=== PATIENT | male | born 1955 | race Caucasian/White ===

== ENCOUNTER 2024-07-06 05:26 | Observation (INO) ==
--- NOTE | 2024-04-13 09:19 | PAT Medication Instructions ---
Medication Instructions Date of Service April 13, 2024 Home Medications ibuprofen 600 mg tablet 600 mg PO BID olmesartan 40 mg tablet 40 mg PO HS pantoprazole 20 mg tablet,delayed release 20 mg PO HS ASK your surgeon for instructions ibuprofen 600 mg tablet 600 mg PO BID Take evening before surgery olmesartan 40 mg tablet 40 mg PO HS pantoprazole 20 mg tablet,delayed release 20 mg PO HS Other Notes NOTHING TO EAT OR DRINK AFTER MIDNIGHT. If you have any questions please call us at [phone] or [phone] or [phone] or [phone]
--- NOTE | 2024-04-22 10:49 | Anesthesiology Consultation ---
Date of Service April 22, 2024 Assessment & Plan (1) Encounter for pre-operative examination: - Infectious disease screening: Per assessment on 04/22/24- No known recent infectious disease contacts or current infectious disease symptoms. - Outpatient joint assessment: Pt currently scheduled for inpatient pathway. If surgeon requests review for outpatient joint pathway, patient is an acceptable candidate for outpatient joint program from anesthesia standpoint pending surgeon's office assessment that patient is motivated, has good/strong post-op home support and completes [facility] Day Joint Program preop requirements. - Patient acceptable risk for surgery pending surgeon-ordered PCP preop evaluation (Dr. Carin Mendieta; appt 05/04). Chart Review Chart Review: Patient seen in Pre Admission Testing Teaching & Discussion Pre-Anesthesia Teaching/Discussion Notes: Instructed NPO after midnight before surgery,except medications with 15 cc of water. Medication instructions provided according to the PAT guidelines. History Surgery Operation Date: 05/25/24 07:00 Proposed Procedures p Right Total Hip Arthroplasty - Reji Martin MD *Surgery date to be changed to 05/27/24 per patient* Height/Weight Height: 5 ft 8 in Weight: 73.2 kg Allergies Allergy/AdvReac Type Severity Reaction Status Date / Time No Known Allergies Allergy Verified 04/13/24 08:34 Medications Home Medications Medication Instructions Recorded Confirmed Last Taken ibuprofen 600 mg tablet 600 mg PO BID 04/13/24 04/13/24 Unknown olmesartan 40 mg tablet 40 mg PO HS 04/13/24 04/13/24 Unknown pantoprazole 20 mg tablet,delayed 20 mg PO HS 04/13/24 04/13/24 Unknown release Past Medical History Medical History Anxiety and depression R/t 's dementia per patient GERD (gastroesophageal reflux disease) Hypertension Osteoarthritis Exercise / Class Metabolic Activity III < 4 Walking/Shop/Light housework Past Family History Family History Other No family history of adverse response to anesthesia Past Surgical History Surgical History History of arthroscopy of left knee History of arthroscopy of right knee History of fusion of cervical spine History of tooth extraction History of total bilateral knee replacement (TKR) 2012 Post-op constipation History of wisdom tooth extraction Past Anesthesia History No Hx of Anesthesia Complications and No Family Hx of Anesthesia Complications History of PONV No Hx of PONV and Hx of Motion Sickness (Remote seasickness hx) Social History Smoking Status: Current every day smoker Smoking cigarettes per day: 15 cigars/day Do You Dip or Chew Tobacco: No Hx Alcohol Use: Yes ("3-4 beers a day") Alcohol type: beer alcohol intake frequency: 3 or more drinks per day (4-5 beers/night) Hx Substance Use: No substance use type: does not use Review of Systems Patient denies chest pain, shortness of breath, fever, chills, cough, wheezing, palpitations. Physical Exam Vital Signs BP 156/69 P 69 TEMP 97.7 SP02 96%RA RESP 16 Physical Full cervical extension range of motion. Full TMJ range of motion. TMD 3 finger breaths Mallampati Score II Dentition: missing molars Lungs: clear throughout to auscultation Cardiac: regular rate and rhythm, no murmurs noted Spine: normal Carotid arteries: negative bruit Extremities: no LE edema Lab Results Anesthesia Preop Results Results Anesthesia Widget: WBC 5.26 K/ul (4.8-10.8) 04/22/24 Hgb 13.1 g/dl (14.0-18.0) L 04/22/24 Hct 37.4 % (42.0-52.0) L 04/22/24 Plt 251 K/uL (130-400) 04/22/24 Na 135 mmol/L (136-145) L 04/22/24 K 4.2 mmol/L (3.5-5.1) 04/22/24 Cl 104 mmol/L (98-107) 04/22/24 CO2 26 mmol/L (21-32) 04/22/24 BUN 19 mg/dl (6-23) 04/22/24 Creat 0.77 mg/dl (0.6-1.4) 04/22/24 Glucose Level 98 mg/dl (70-99(Fasting)) 04/22/24 PT 10.3 Seconds (9.0-12.0) 04/22/24 PTT 25 Seconds (21-31) 04/22/24 INR 0.9 (0.9-1.1) 04/22/24 Urine Color Yellow 04/22/24 Urine Appearance Cloudy (Clear) A 04/22/24 Urine pH 5.5 (4.5-7.5) 04/22/24 Urine Specific [place] 1.021 (1.000-1.030) 04/22/24 Urine Protein Negative (Negative) 04/22/24 Urine Glucose (UA) Negative (Negative) 04/22/24 Urine Ketones Trace (Negative) H 04/22/24 Urine Blood Negative (Negative) 04/22/24 Urine Nitrite Negative (Negative) 04/22/24 Urine Bilirubin Negative (Negative) 04/22/24 Urine Urobilinogen Negative (Negative) 04/22/24 Urine Leukocyte Esterase Negative (Negative) 04/22/24 Urine WBC (Auto) 0-5 /hpf (0-5) 04/22/24 Urine RBC (Auto) 3-5 /hpf (0-2) H 04/22/24 Urine Hyaline Casts (Auto) 0-2 /lpf (0-2) 04/22/24 Urine Epithelial Cells (Auto) 0-2 /hpf (0-2) 04/22/24 Urine Bacteria (Auto) None Seen (None Seen) 04/22/24 Blood Type B Positive 04/22/24 Antibody Screen NEGATIVE 04/22/24 Testing Electrocardiogram Date: 04/22/24 NSR at 68bpm. RBBB. Chest X-Ray Date: 04/22/24 Findings: + NAD
--- NOTE | 2024-07-06 05:23 | History & Physical Bridge Note ---
Date of Service July 06, 2024 History & Physical Bridge Note I have examined the patient, reviewed the History & Physical and in the interval since the performance of the History & Physical I have noted the following changes of clinical significance:consent and site verified including risks such as infection,instability,bone and nerve injury and leg length inequality. no changes noted
[2024-07-06 06:03] LABS: Basophils # (auto) 0.03 K/uL (0.00-0.20); Basophils % (auto) 0.5 %; Eosinophils # (auto) 0.04 K/uL (0.00-0.50); Eosinophils % (auto) 0.7 %; Hematocrit (blood only) 37.6 % (42.0-52.0); Hemoglobin 12.8 g/dl (14.0-18.0); Immature Granulocytes # (auto) 0.02 K/uL (0.01-0.20); Immature Granulocytes % (auto) 0.3 %; Lymphocytes # (auto) 1.43 K/uL (1.20-3.40); Lymphocytes % (auto) 24.6 %; Mean Corpuscular Hemoglobin 32.7 pg (25.0-34.0); Mean Corpuscular Volume 96.2 fL (80.0-100.0); Mean Platelet Volume 8.4 fL (9.4-12.4); Monocytes # (auto) 0.57 K/uL (0.11-0.59); Monocytes % (auto) 9.8 %; Neutrophils # (auto) 3.72 K/uL (1.40-6.50); Neutrophils % (auto) 64.1 %; Platelet Count 267 K/uL (130-400); RDW Coefficient of Variation 12.2 % (11.5-14.5); RDW Standard Deviation 42.6 fL (36.4-46.3); Red Blood Count 3.91 M/uL (4.70-6.10); White Blood Count 5.81 K/ul (4.8-10.8)
[2024-07-06] MEDS: LR 60ML/HR IV SCH (06:12)
[2024-07-06] MEDS: LR 500ML BOLUS, THEN 15ML/HR IV SCH (06:12)
[2024-07-06] MEDS ORDERED: BUPIVACAINE 0.5 % 5 MG/1 ML PF 10ML VIAL ONE (06:34)
[2024-07-06] MEDS ORDERED: fentaNYL citrate PF 100 MCG/2 ML VIAL IV PRN (06:46)
[2024-07-06] MEDS ORDERED: ePHEDrine sulfate 50 MG/ML AMP IV PRN (06:46)
[2024-07-06] MEDS ORDERED: ONDANSETRON INJ 2 MG/ML 2 ML VIAL IV PRN ×2 (06:46→09:36)
[2024-07-06] MEDS ORDERED: ATROPINE SULFATE 0.1 MG/ML 10ML SYR IV PRN (06:46)
[2024-07-06] MEDS ORDERED: fentaNYL citrate PF 100 MCG/2 ML VIAL ONE (06:48)
[2024-07-06] MEDS ORDERED: MIDAZOLAM HCL 1 MG/ML 2ML VIAL ONE (06:48)
[2024-07-06] MEDS ORDERED: PROPOFOL IV EMULSION 10 MG/ML 20 ML VIAL IV ONE (06:49)
[2024-07-06] MEDS ORDERED: LIDOCAINE 2% 2 ML VIAL/AMP(20MG/ML) INFIL ONE (06:49)
[2024-07-06] MEDS: TRANEXAMIC ACID 1,000 MG **IV Pre-op IV SCH (06:51)
[2024-07-06] MEDS: ceFAZolin 2000MG 2,000 MG/15 ML SYR IV SCH ×2 (07:00→14:08)
[2024-07-06] MEDS ORDERED: PHENYLEPHRINE 100MCG/ML 5ML SYR ONE ×2 (07:16→07:49)
[2024-07-06] MEDS: ORTHO JOINT ANESTHETIC ONE (07:34)
[2024-07-06] MEDS ORDERED: DEXAMETHASONE SOD INJ 4 MG/ML VIAL ONE (07:47)
[2024-07-06] MEDS: TRANEXAMIC ACID 1,000 MG **IV Intra-op IV SCH (08:06)
[2024-07-06] MEDS: ROPIV 0.5% 246mg, Ketorolac 30mg, EPINEPHrine 0.5mg in NSS INFIL SCH (08:06)
--- NOTE | 2024-07-06 08:27 | Post Operative Brief Note ---
Immediate Post Op Note Date of Surgery July 06, 2024 Pre & Post Diagnosis Operation Date: 07/06/24 07:00 <No data on this case meets the specified criteria> Osteoarthritis right hip pre and postop diagnosis same I identified the patient and participated in the time-out.: Yes Procedure Operation Date: 07/06/24 07:00 <No data on this case meets the specified criteria> Noncemented right total hip replacement Surgeon Reji Martin MD [facility] no resident or fellow available Estimated Blood Loss 75 Findings Consistent with Post-Op Diagnosis Severe osteoarthritis right hip Fluids 1000 cc Complications None
--- NOTE | 2024-07-06 08:31 | Operative Report ---
Post Operative Report Pre & Post Diagnosis Operation Date: 07/06/24 07:00 <No data on this case meets the specified criteria> Osteoarthritis right hip pre and postop diagnosis I identified the patient and participated in the time-out.: Yes Procedure Operation Date: 07/06/24 07:00 <No data on this case meets the specified criteria> Noncemented right total placement Surgeon Reji Martin MD Hospitality Housekeeper Lyubov no resident or fellow available Estimated Blood Loss 75 Findings Consistent with Post-Op Diagnosis Severe osteoarthritis Fluids 1000 cc Specimens Bone pathology Drains None Complications None Indications Severe pain failed conservative management Description of Procedure After the patient was appropriate endophyte site verified consent verified antibiotics confirmed to be given the right lower extremity was prepped and draped use routine fashion the patient in the left lateral decubitus position. Posterior approach the hip was carried out. Full-thickness flaps raised IT band and gluteus dilma fascia incised and split the length of the incision tract placed care taken protect the sciatic nerve the short external rotators were rel eased the capsule was then teed and open and then the hip dislocated the femoral neck resected. Serial reaming carried up to 54 to 54 cup impacted into appropriate anteversion inclination secured with an additional 6.5 x 25 screw with excellent purchase. Osteophytes resected and the dual mobility liner placed. 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 He often times needs to pick her up off the floor. The femur was then flexed internally rotated proximal femur. With the lateralizing rongeur cutter canal finder lateralizing rasp was serial broaching up to a size 5. Size 5 was then impacted into position trial reduction was carried out and everything was excellent the hip was very stable. The hip was then dislocated all trial and once removed. Wound was soaked in Betadine and irrigated. Size 5 was then impacted in a 4728 bipolar was impacted with a 28+5 ceramic head. The hip was stable of leg lengths were excellent. Wound was then closed using #2 Vicryl for the capsule and the short external rotators and for the deep fascia 2-0 Vicryl for the subcutaneous tissue and stainless to clips for skin. EBL was 75 cc or less. Crystalloid 1000 cc. Bone pathology pending x-ray pending. Summary of implants size 54 acetabular shell sector cup 6.5 x 25 screw dome cover 54 x 47 liner 5 standard femoral stem 47/25 bipolar head 28+5 ceramic head. DePuy J&J implants. EBL 75 cc or less crystalloid 1000 cc. Bone pathology pending. DVT prophylaxis start tomorrow. Family contacted son postop Barrington [phone] I attest to the content of the Intraoperative Record and any orders documented therein. Any exceptions are noted below.
--- NOTE | 2024-07-06 08:32 | Orthopedic Progress Note ---
Date of Service July 06, 2024 Orthopedic Progress Note Underwent right total hip replacement noncemented. Tolerated well. Denies chest pain shortness of breath fever chills nausea vomiting headache. X-ray pending. Neurovascular check limited by spinal. Family contacted son Barrington [phone].
--- NOTE | 2024-07-06 08:33 | Discharge Summary ---
Date of Service July 07, 2024 Admission HPI Per Admitting Provider Right hip pain osteoarthritis right hip Principal Diagnosis Osteoarthritis right hip Discharge Data Allergies Allergy/AdvReac Type Severity Reaction Status Date / Time perflutren [From Definity] AdvReac Unknown Back Pain Verified 07/06/24 05:49 Vaccinations None Consultations None Procedures Performed Operation Date: 07/06/24 07:00 <No data on this case meets the specified criteria> Noncemented right total hip replacement Ordered Studies Bone pathology x-ray Hospital Course (1) Status post right hip replacement: Total Time Total Time Spent Total Time Spent (In Minutes): 5 Discharge Plan Discharge Items Patient Disposition: Home - Home Health Services Reason For Visit: Right Hip Osteoarthritis Discharge Diagnosis: Osteoarthritis right hip status post right hip replacement noncemented Condition on Discharge: Good Activity: Per Instructions section Lifting: Wait until after follow-up appointment Bathing: Keep incision dry Sexual Activity: Wait until after follow-up appointment Exercise/Sports: Wait until after follow-up appointment Weightbearing: Full weightbearing Non-emergency contact: Surgeon Call non-emergency contact if: you have any medication questions, your pain is not controlled, your temperature is above 101, your wound has increased redness, your wound has increased drainage and your wound pain has increased Follow-up/Referrals: Marc Stack, [Primary Care Provider] - Diet: Regular Addtl Attending Provider Instructions: New Medicine: * You will likely be taking one or more of these medicines: 1. Percocet - Take, as directed, when you need it, every four to six hours to control your pain. 2. Iron Sulfate - Take 1x each day for the month after surgery to help you replace the blood lost during surgery. 3. Eliquis - Thins your blood to lessen the chance of forming a blood clot. * The most common side effects of pain medicine and iron are nausea and constipation. If nausea or constipation is too much of a problem or if you have any questions about your new medicines or doses, call [facility] at . We will try to help you manage these issues. "VERY IMPORTANT TO READ AND REVIEW" Blood Clots and Blood Thinning Medicine: * You are given Eliquis during the immediate post-operative period to lessen the risk of blood clots forming in your legs and/or lungs. It is usually given for six weeks after surgery. Pain: * The immediate post-operative period after hip replacement surgery is often quite painful. * You are given a prescription for pain medicine. You should take it, as directed, when you need it, especially before physical therapy and before going to bed. Pain that interferes with sleep is very common and can last several months. * You will likely need pain medicine for the first two to four weeks. It will not stop all of the pain. The pain will lessen and as you feel better, you may change to milder pain medicine such as Tylenol. * The most common side effects of pain medicine are nausea and constipation, so don't take more than you need. Physical Therapy: * Follow the "Hip Precautions Instructions." * In some cases, the social work assistant at the hospital will arrange to have a therapist come to your house for the first couple of weeks to help you learn these skills. * You need to practice on your own or with the help of a family member as needed. * When you learn these skills, most of the therapy can be done on your own. Home Exercise: * You were shown a series of exercises in the hospital. Do these exercises three to four times each day including the exercises you were shown in physical therapy. Walking: * Get up and walk several times each day. For the first four weeks, try not to stand or walk for more than one hour at a time. If you do stand or walk for more than one hour, you will not hurt anything, but your leg will likely swell. * As you feel comfortable, you may change from the walker or crutches to a cane and then to independent walking. SELF CARE INSTRUCTIONS AFTER TOTAL HIP REPLACEMENT Until the incision and soft tissues around your hip have healed, there is a possibility that the hip prosthesis could dislocate. A. Observe the following precautions to prevent dislocation: 1. Don't bend your hip greater than 90 degrees. 2. Avoid crossing your legs or ankles while standing or lying. 3. Sit with your feet placed 6 inches apart. 4. When sitting, keep your knees below your hips. Sit on a firm surface, avoid deep, soft chairs and couches. Use an elevated toilet seat in the bathroom. 5. Don't bend over at the waist. Use a long handled shoehorn and a sock aid to help you put on your shoes and socks. A plate maker zinc can help you orange picker machine operator objects that are too high or too low to reach. 6. Keep car riding to a minimum for at least one month after surgery. B. Your balance may be shaky for a while. Use crutches or a walker until directed by your doctor. C. Use hand rails when walking on stairs. D. Wear low heeled shoes with non-slip soles. E. Be sure that your floors are free of things that could trip you - throw rugs, electrical cords, small objects. Avoid wet and waxed floors, especially with crutches and canes. F. Try to walk several times a day with rest periods between. G. Continue with all the exercises taught to you in the hospital. Again, make walking a part of your daily routine. VERY IMPORTANT TO READ AND REVIEW A. Take Eliquis (blood thinning medication) as directed by your doctor. B. There are a few signs you need to watch for after you are home. If you notice any of the followin. Increased severe hip pain. Some pain is expected especially when you exercise. 2. Increased swelling in your leg or knee; pain or swelling of the calf muscle in either lower leg. 3. Any fluid drainage from the incision. 4. Shortness of breath or chest pain. TEDs/Elastic Stockings: * The white elastic stockings help limit swelling and prevent blood clots from forming in your legs. The more you wear them, the more they work. * Wear them for six weeks. Prevention of Infection: * Take antibiotics one hour before any dental cleaning, dental work, urological procedure, gastrointestinal procedure or any invasive surgery in order to prevent your new joint from getting infected. * You may get the antibiotics from the doctor performing the procedure or we will call in a prescription to the pharmacy of your choice. Call the office for a prescription at least 2 days prior to your appointment. Diet: * You may return to previous diet. Things to Watch For: * Drainage from the incision site that occurs more than one week after your surgery. * Severely increased leg pain or swelling. * Increased redness at the incision site. * Fever above 101 degrees Fahrenheit. * Unusual chest pain or shortness of breath. * Unusual pain or burning with urination MEDICATIONS: * Please take your prescriptions as instructed at your pre-op appointment and/or see medication discharge instructions listed above. * If concerns develop, call your physician's office at . SPECIAL CARE INSTRUCTIONS: * Ice/Elevate as instructed. * Keep dressing clean, dry, intact. * Your surgical extremity may be discolored due to prepping agents used on the skin. A bluish-green tint is a normal variant and should not cause alarm. Call your doctor at [phone] if: * Temperature above 101 degrees * Pain not relieved by pain medicine ordered * There is increased drainage or redness from any incision * You have any unanswered questions, problems or concerns. FOLLOW UP VISIT: * If not already scheduled, please call the office at to schedule a follow-up appointment. Pending Studies at Discharge: Yes Studies:: bone pathology Stand-Alone Forms: My [facility], Smoking Cessation Medications and DC Order Prescriptions: No Action pantoprazole 20 mg Tablet,Delayed Release (Dr/Ec) 20 mg PO UD PRN (Reason: Acid Reflux) ibuprofen 600 mg Tablet 600 mg PO BID olmesartan 40 mg Tablet 40 mg PO HS aspirin [Aspir-81] 81 mg Tablet,Delayed Release (Dr/Ec) 81 mg PO DAILY Patient Comments: do not take every day Admission Data Admit Date/Time: 07/06/24 08:41 Attending Provider: Reji Martin Admit Provider: Reji Martin Primary Care Provider: Marc Stack Other Providers: [facility]; [facility]
--- NOTE | 2024-07-06 08:44 | Operative Report ---
Post Operative Report Pre & Post Diagnosis Operation Date: 07/06/24 07:00 Pre-Op Diagnosis: Right Hip Osteoarthritis Post-Op Diagnosis: Right Hip Osteoarthritis I identified the patient and participated in the time-out.: Yes Procedure Operation Date: 07/06/24 07:00 Actual Procedures p Right Total Hip Arthroplasty, Uncemented(Right) - Reji Martin MD Surgeon DAJUAN Martin MD Drag Saw[facility] PAC no resident or fellow available Estimated Blood Loss 75 Findings Consistent with Post-Op Diagnosis see operative report Specimens see operative report Drains none Complications none Disposition Accompanied Patient To Recovery: Yes Indications This 68 year old male presented to the office with complaints of persisting right hip pain. He had tried conservative care measures without improvement. He elected to proceed with surgical invention after being educated about potential risks and outcomes. Preoperative imaging was obtained. Description of Procedure The patient was administered a spinal anesthetic and then taken to the operating room where he was given sedation. He was prepped and draped in the usual sterile fashion. Please see Dr. Martin's operative report for specifics of the procedure. I was present for the entire case from initial patient positioning through final wound closure. Assistance was provided in tissue retraction, hemostasis, trial implant placement, final implant placement, and final wound closure. The patient was taken to the recovery room in satisfactory condition. I attest to the content of the Intraoperative Record and any orders documented therein. Any exceptions are noted below.
--- NOTE | 2024-07-06 08:48 | XRay Report ---
XR pelvis 1-2V routine CLINICAL HISTORY: S/P R KAREN COMPARISON: 01/18/2024 FINDINGS: Interval right hip prosthesis shows no hardware complication. There is expected soft tissu e gas. Skin amrit are present. IMPRESSION: Unremarkable postoperative exam. ACT 112: Negative or not required by law. Electronically signed by: Adolfo Thompson M.D. 07/06/2024 8:46 AM
[2024-07-06] MEDS ORDERED: VANCOMYCIN CONSULT ACTIVE PRN (09:36)
[2024-07-06] MEDS ORDERED: HYDROmorphone INJ 0.5 MG/0.5 ML SYR IV PRN (09:36)
[2024-07-06] MEDS ORDERED: bisacodyL 10 MG SUPP PR PRN (09:36)
[2024-07-06] MEDS ORDERED: ALUMINUM/MAGNESIUM SUSP 30 ML UDC PO PRN (09:36)
[2024-07-06] MEDS ORDERED: METOCLOPRAMIDE HCL INJ 5 MG/ML 2 ML VIAL IV PRN (09:36)
[2024-07-06] MEDS ORDERED: MAGNESIUM HYDROXIDE SUSP 30 ML UDC PO PRN (09:36)
[2024-07-06] MEDS ORDERED: NALOXONE HCL 0.4 MG/1 ML VIAL/CARP IV PRN (09:36)
[2024-07-06] MEDS ORDERED: diphenhydrAMINE 50 MG/ML VIAL IV PRN (09:36)
[2024-07-06] MEDS: APIXABAN 2.5 MG TAB PO SCH (10:52)
[2024-07-06] MEDS: SODIUM CHLORIDE 0.9% 1,000 ML IV SCH (10:58)
[2024-07-06] MEDS: VANCOMYCIN HCL 1,000 MG in SODIUM CHLORIDE 0.9% 250 ML IV ONE (10:59)
[2024-07-06] MEDS ORDERED: TAMSULOSIN HCL 0.4 MG CAP PO PRN (11:21)
[2024-07-06] MEDS: KETOROLAC TROMETHAMINE 15 MG/ML VIAL IV SCH (11:29)
[2024-07-06] MEDS: DOCUSATE SODIUM 100 MG CAP PO SCH (11:29)
[2024-07-06] MEDS: MULTIVITAMIN TAB PO SCH (12:22)
[2024-07-06] MEDS: ASPIRIN 81 MG ECTAB PO SCH (12:22)
--- NOTE | 2024-07-06 14:07 | Orthopedic Progress Note ---
Date of Service July 06, 2024 Assessment & Plan Admission and Anticipated Discharge Date Admission Date: July 06, 2024 Orthopedic Progress Note Postop check status post right total hip replacement. Patient is resting comfortably in bed. Denies chest pain shortness of breath fever chills nausea vomiting headache. Vital signs are stable he is afebrile. Neurovascular check from sciatic nerve is normalized. Wound dressing clean dry and intact. Postop x-rays look excellent. Assessment doing well continue care pathway mobilize out of bed. Start walking sitting in a chair etc. Will saline lock IV. Initiate anticoagulation tomorrow.
[2024-07-06] MEDS: ACETAMINOPHEN 500 MG TAB PO SCH (14:08)
--- NOTE | 2024-07-06 15:15 | Anesthesiology Progress Note ---
Date of Service July 06, 2024 Anesthesia Post Procedure Vital Signs Vital Signs: Temp Pulse Pulse Pulse Resp BP Pulse Ox 07/06/24 13:30 36.7 C 73 14 146/73 H 94 07/06/24 12:33 36.7 C 79 17 148/82 H 95 07/06/24 11:40 36.8 C 63 16 168/82 H 96 07/06/24 10:55 36.9 C 65 17 168/76 H 94 07/06/24 10:25 36.6 C 66 14 172/76 H 96 07/06/24 10:10 63 15 170/81 H 95 07/06/24 10:00 64 15 165/86 H 97 07/06/24 09:50 63 21 166/86 H 97 07/06/24 09:40 36.6 C 57 L 14 176/82 H 100 07/06/24 09:30 65 16 167/92 H 97 07/06/24 09:20 59 L 14 174/91 H 98 07/06/24 09:10 59 L 16 149/93 H 92 07/06/24 09:00 60 16 160/74 H 100 07/06/24 08:50 57 L 15 161/89 H 100 07/06/24 08:40 60 18 156/84 H 97 07/06/24 08:31 36.1 C L 63 17 134/68 100 07/06/24 05:52 36.4 C L 67 20 188/83 H 99 O2 Del Method O2 Flow Rate 07/06/24 13:30 Room Air 07/06/24 12:33 Room Air 07/06/24 11:40 Room Air 07/06/24 10:55 Room Air 07/06/24 10:25 Room Air 07/06/24 10:10 Room Air 07/06/24 10:00 Room Air 07/06/24 09:50 Room Air 07/06/24 09:40 Room Air 07/06/24 09:30 Room Air 07/06/24 09:20 Room Air 07/06/24 09:10 Room Air 07/06/24 09:00 Room Air 07/06/24 08:50 Oxymask 4 07/06/24 08:40 Oxymask 4 07/06/24 08:31 Oxymask 4 07/06/24 05:52 Room Air Notes Mental Status: alert / awake / arousable Patient Amnestic to Procedure: Yes Nausea / Vomiting: adequately controlled Pain: adequately controlled Airway Patency, RR, SpO2: stable & adequate BP & HR: stable & adequate Hydration State: stable & adequate Neuraxial Anesthesia: was administered and sensory block is resolving Anesthetic Complications: no major complications apparent
--- OUTSIDE RECORDS SUMMARY | 2024-07-06 15:34 | External Medical Summary | Continuity of Care Document ---
Author Name Unknown Organization [facility] [address] Address [address] [place], [place] [id number] Care Team Providers Care Clinical Support Tech Name Role Phone Marc Stack Primary Care Physician [phone] [id number] Date(s): 06/23/24 - 06/23/24 [facility] [address] [facility] [address] [place], [place] [phone] Encounter Diagnosis Encounter for other preprocedural examination(Final) - Discharge Disposition: Home or Self Care Attending Physician: ALAINA Mcarthur Cory D Referring Physician: ALAINA Mcarthur Cory D Encounter Type: Clinic Allergies, Adverse Reactions, Alerts Substance Criticality Severity Reaction Reaction Severity Status Definity sharp back pain Acti ve Immunizations Given and Recorded Vaccine Date Status Refusal Reason SARS-CoV-2 (COVID-19) mRNA-vacc - [id number] 12/04/23 Recorded SARS-CoV-2 (COVID-19) mRNA-vacc - [id number] 01/14/23 Recorded SARS-CoV-2 mRNA (Pfizer 12+) bivalent 11/13/21 Rec orded Zoster Vaccine Unspecified 1 10/07/21 Recorded pneumococcal 13-valent vaccine 2 10/07/21 Recorded tetanus/diphtheria/pertuss, acel (Tdap) 10/07/21 R ecorded SARS-CoV-2 (COVID-19) mRNA BNT-162b2 vax 12/06/20 Recorded SARS-CoV-2 (COVID-19) mRNA BNT-162b2 vax 05/16/20 Recorded influenza virus vaccine, inactivated 12/07/19 Give n influenza virus vaccine, inactivated 11/15/18 Give n pneumococcal 23-valent vaccine 08/13/18 Given 1Result Comment: Nadja 2Result Comment: Nadja Medications aspirin 81 mg oral delayed release tablet Start: 05/24/24 9:17:00 AM EDT, 1 tab, PO, Daily, Disp# 100 tab, Note to Pharmacy: Patient to take daily with food, Pharmacy: [id number] Start Date: 05/24/24 Status: Ordered Quantity: 100.0 Unit: tab Repeat number: 1 ibuprofen 600 mg oral tablet Start: 03/24/24 1:30:00 PM EST, See Instructions, Disp# 60 tab, Refills: 2, TAKE 1 TABLET BY MOUTH TWO TIMES DAILY WITH FOOD OR MILK NEEDED FOR PAIN AND OR ARTHRITIS, [id number] Start Date: 03/24/24 Status: Ordered Quantity: 60.0 Unit: tab Repeat number: 1 multivitamin Start: 11/15/18 8:46:00 AM EDT, 1 tab, PO, Daily, Chewable Start Date: 11/15/18 Status: Ordered Repeat number: 1 olmesartan 40 mg oral tablet Start: 02/12/24 9:32:00 AM EST, 1 tab, PO, Daily, Disp# 30 tab, Refills: 6, Pharmacy: [id number] Start Date: 02/12/24 Stop Date: 09/09/24 Status: Ordered Quantity: 30.0 Unit: tab Repeat number: 7 pantoprazole 20 mg oral delayed release tablet Start: 03/10/24 11:45:00 AM EST, 1 tab, PO, Daily, Disp# 90 tab, Refills: 3, Pharmacy: [id number] Start Date: 03/10/24 Stop Date: 07/08/24 Status: Ordered Quantity: 90.0 Unit: tab Repeat number: 4 Indications: Epigastric pain; Problem List Condition Confirmation Course Effective Dates Status H ealth Status Informant Acute rhinosinusitis Confirmed Active Alcohol abuse Confirmed Active Cigar smoker Confirmed Active Decreased vision Confirmed Active Depressed mood Confirmed Active S/P TKR (total knee replacement) Confirmed Active History of neck surgery Confirmed Active Hypertension Confirmed Active Knee pain 1 Confirmed Active Low back pain radiating to right lower extremity Confirmed Active Neck pain Confirmed Active Nicotine use Confirmed Active Osteoarthritis of knee Confirmed Active Osteoarthritis of right hip Confirmed Active Healthcare maintenance Confirmed Active Preoperative cardiovascular examination Confirmed Active Positive screening for depression on 9-item Patient Health Questionnaire (PHQ-9) Confirmed Active Right bundle branch block Confirmed Active Rotator cuff tear Confirmed Active Sacroiliac joint pain Confirmed Active SHOULDER PAIN 2 Confirmed Active History of cigarette smoking Confirmed Active Weight disorder Confirmed Active 1left 2right Procedures Procedure Date Related Diagnosis Body Site Status Hip X-ray 1 06/14/20 Completed Ultrasound of right groin an d right scrotum 2 06/14/20 Completed CXR - Chest X-ray 3 06/19/14 Compl eted Neck repair 4 04/2011 Completed bilateral knee arthroscopies Completed bilateral TKAs Completed [facility] ompleted 11. No acute fractures. 2. Moderate osteoarthritic changes involving the right hip, with marked superior joint space narrowing and femoral head osteophyte formation. 2No sonographic abnormality within the right inguinal region. No hernia identified. 3No evidence of acute disease 4Donner disc and screws placed. Results Laboratory List Name Date Basic Metabolic Panel (BASIC METAB PANEL ) 06/23/24 Complete Blood Count w Differential (CBC ,DIFFH) 06/23/24 Prothrombin Time w/ INR (PROTIME WITH IN R) 06/23/24 Urine Analysis w/ Reflexed Microscopic. (URINE W/REFLEX MICR) 06/23/24 Most recent to oldest [Reference Range]: 1 eGFR CKD-EPI [>60 mL/min/1.73 m2] >90 mL /min/1.73 m2 1 (06/23/24 10:04 AM) Estimated CrCl 83.19 mL/min (06/23/24 10:04 AM) MPV [9.0-12.2 fL] 8.6 fL *LOW* (06/23/24 10:04 AM) Immature Gran% 0.4 % (06/23/24 10:04 AM) Neut% 62.4 % (06/23/24 10:04 AM) Lymph% 27.2 % (06/23/24 10:04 AM) [place]% 9.1 % (06/23/24 10:04 AM) Baso% 0.4 % (06/23/24 10:04 AM) Eos% 0.5 % (06/23/24 10:04 AM) Immat Gran, Abs [0-0.4 K/uL] 0.02 K/uL (06/23/24 10:04 AM) Neut, Abs [2.0-7.7 K/uL] 3.48 K/uL (06/23/24 10:04 AM) Lymph, Abs [1.0-3.4 K/uL] 1.52 K/uL (06/23/24 10:04 AM) [place], Abs [0-1.0 K/uL] 0.51 K/uL (06/23/24 10:04 AM) Baso, Abs [0-0.1 K/uL] 0.02 K/uL (06/23/24 10:04 AM) Eos, Abs [0-0.5 K/uL] 0.03 K/uL (06/23/24 10:04 AM) Type of Diff: AUTO *Unknown* (06/23/24 10:04 AM) RDW [11.5-14.2 %] 12.2 % (06/23/24 10:04 AM) Anion Gap [5-14 mmol/L] 6 mmol/L (06/23/24 10:04 AM) Bili (u) [NEG] NEGATIVE *Unknown* (06/23/24 10:04 AM) BUN [7-20 mg/dL] 21 mg/dL *HI* (06/23/24 10:04 AM) Ca [8.4-10.2 mg/dL] 9.1 mg/dL (06/23/24 10:04 AM) Cl- [96-107 mmol/L] 105 mmol/L (06/23/24 10:04 AM) HCO3 [22-30 mmol/L] 24 mmol/L (06/23/24 10:04 AM) Cret [0.70-1.30 mg/dL] 0.76 mg/dL (06/23/24 10:04 AM) Glu [74-106 mg/dL] 106 mg/dL (06/23/24 10:04 AM) Hct [39-48 %] 40.7 % (06/23/24 10:04 AM) Hgb [13.0-17.0 g/dL] 13.7 g/dL (06/23/24 10:04 AM) INR [0.9-1.1] 0.9 2 (06/23/24 10:04 AM) K [3.5-5.1 mmol/L] 4.2 mmol/L (06/23/24 10:04 AM) Ketones [NEG mg/dL] NEGATIVE mg/dL (06/23/24 10:04 AM) Leuk Est [NEG] NEGATIVE 3 *Unknown* (06/23/24 10:04 AM) MCH [28-33 pg] 32.9 pg (06/23/24 10:04 AM) MCHC [32-36 g/dL] 33.7 g/dL (06/23/24 10:04 AM) MCV [81-96 fL] 97.8 fL *HI* (06/23/24 10: AM) Na [137-145 mmol/L] 135 mmol/L *LOW* (06/23/24:04 AM) Nitrite (u) [NEG] NEGATIVE *Unknown* (06/23/24 10:04 AM) Plts [150-350 K/uL] 327 K/uL (06/23/24 10:04 AM) PT [12.0-14.2 seconds] 12.5 seconds (06/23/24 10:04 AM) RBC [4.40-5.60 M/uL] 4.16 M/uL *LOW* (06/23/24 10:04 AM) Appear (u) CLEAR *Unknown* (06/23/24 10:04 AM) Color (u) YELLOW *Unknown* (06/23/24 10:04 AM) Glu (u) [NEG mg/dL] NEGATIVE mg/dL (06/23/24 10:04 AM) Hgb (u) [NEG] NEGATIVE *Unknown* (06/23/24 10:04 AM) pH (u) [4.5-8.0 unit] 6.0 unit (06/23/24 10:04 AM) Prot (u) [NEG mg/dL] NEGATIVE mg/dL (06/23/24 10:04 AM) Urobili [0.1-1.0 EU/dL] 0.2 EU/dL (06/23/24 10:04 AM) SG [1.005-1.030] 1.025 (06/23/24 10:04 AM) WBC [4.0-10.4 K/uL] 5.58 K/uL (06/23/24 10:04 AM) 1Result Comment: Testing Performed By: Dept of Pathology [facility] [address], [address], [place] [address] 2Result Comment: Suggested therapeutic range for low-intensity Coumadin therapy for venous thromboembolism is INR 2.0-3.0 (ex: atrial fibrillation, history of TIA/stroke). For high risk patients, the suggested therapeutic range is INR 2.5-3.5 (ex: mechanical prosthetic valves). Testing Performed By: Dept of Pathology [facility] [address], [address], [place] [address] 3Result Comment: Testing Performed By: Dept of Pathology [facility], [address], [place] [address] Social History Social History Type Response Tobacco Current every day sm oker, Cigars, Started age 14 Years. 1 Smoking Status Never smoked cigaret juan pablo Sex Male Sex Representation Male (finding) 1Former Cigarette smoker. Now smokes cigars Patient Care team information Care Team Personnel Name: DO Stack Franklin J Position: Physician - Family Med Member Role: Primary Care Provider Address: [address] [place] [address] Telecom: [phone] Care Team Related Persons Name: NOEMÍ GASCA Insurance Providers Guarantor name: AUBREE GASCA Health Plan Information #: 1 [address] [employer] [place] Member Number: [id number] Policy Number: NA Group Number: [id number] Payer Identifier: [id number] Health Plan Information #: [address] [facility] [place] Member Number: [id number] Policy Number: NA Group Number: NA Payer Identifier: [id number] Health Plan Information #: 3 Payer: MEDICARE Member Number: NA Policy Number: NA Group Number: NA Payer Identifier: [id number]
--- OUTSIDE RECORDS SUMMARY | 2024-07-06 15:34 | External Medical Summary | Continuity of Care Document ---
Author Name Unknown Organization [facility] [address] [place] [id number] Address [address] [place] [id number] Care Team Providers Care Security Rep Name Role Phone Marc Stack Primary Care Physician [phone] [id number] Date(s): 06/17/24 - 06/17/24 [facility] [address] [facility] [address] [facility] [address] [place] [id number] Encounter Diagnosis Osteoarthritis of right hip(Discharge Diagnosis) - 06/17/24 Discharge Disposition: Home or Self Care Attending Physician: ALAINA Mcarthur, Natanael Brown Referring Physician: MD Mario, Reji Ball Encounter Type: Clinic Allergies, Adverse Reactions, Alerts Substance Criticality Severity Reaction Reaction Severity Status Definity sharp back pain Acti ve Immunizations Given and Recorded Vaccine Date Status Refusal Reason SARS-CoV-2 (COVID-19) mRNA-vacc - [id number] 12/04/23 Recorded SARS-CoV-2 (COVID-19) mRNA-vacc - [id number] 01/14/23 Recorded SARS-CoV-2 mRNA (Pfizer 12+) bivalent [...] Patient to take daily with food, Pharmacy: [facility][id number] Start Date: 05/24/24 Status: Ordered Quantity: 100.0 Unit: tab Repeat number: 1 ibuprofen 600 mg oral tablet Start: 03/24/24 1:30:00 PM EST, See Instructions, Disp# 60 tab, Refills: 2, TAKE 1 TABLET BY MOUTH TWO TIMES DAILY WITH FOOD OR MILK NEEDED FOR PAIN AND OR ARTHRITIS, [id number] Start Date: 03/24/24 Status: Ordered Quantity: 60.0 Unit: tab Repeat number: 1 multivitamin Start: 11/15/18 8:46:00 AM EDT, 1 tab, PO, Daily, Chewable Start Date: 11/15/18 Status: Ordered Repeat number: 1 olmesartan 40 mg oral tablet Start: 02/12/24 9:32:00 AM EST, 1 tab, PO, Daily, Disp# 30 tab, Refills: 6, Pharmacy: [facility] Start Date: 02/12/24 Stop Date: 09/09/24 Status: Ordered Quantity: 30.0 Unit: tab Repeat number: 7 pantoprazole 20 mg oral delayed release tablet Start: 03/10/24 11:45:00 AM EST, 1 tab, PO, Daily, Disp# 90 tab, Refills: 3, Pharmacy: [id number] Start Date: 03/10/24 Stop Date: 07/08/24 Status: Ordered Quantity: 90.0 Unit: tab Repeat number: 4 Indications: Epigastric pain; Mental Status 06/17/24 Barriers to Learning one year None evide nt Mandatory Health Literacy Documentation Yes Health Literacy Communication Barriers N ever Primary Language Congolese Problem List Condition Confirmation Course Effective Dates [...] Active Weight disorder Confirmed Active 1left 2right Diagnosis Diagnosis Type Effective Dates Health Status Clinical Service Informant Osteoarthritis of right hip Discharge Diagnosis 06/17/24 Procedures Procedure Date Related Diagnosis Body Site Status Hip X-ray 1 06/14/20 Completed Ultrasound of right groin an d right scrotum 2 06/14/20 Completed CXR - Chest X-ray 3 06/19/14 Compl eted Neck repair 4 04/2011 Completed bilateral knee arthroscopies Completed bilateral TKAs Completed [facility] ompleted 11. No acute fractures. 2. Moderate osteoarthritic changes involving the right hip, with marked superior joint space narrowing and femoral head osteophyte formation. 2No sonographic abnormality within the right inguinal region. No hernia identified. 3No evidence of acute disease 4Donner disc and screws placed. Vital Signs Most recent to oldest [Reference Range]: 1 Height 169 cm (06/17/24 9:56 AM) Patient Weight 74.3 kg (06/17/24 9:56 AM) Body Mass Index 26.01 kg/m2 (06/17/24 9:56 AM) Temperature [36.5-37.9 DegC] 36.5 DegC (06/17/24 9:56 AM) Heart Rate 58 bpm (06/17/24 9:56 AM) Blood Pressure 144/82mmHg (06/17/24 9:56 AM) Social History Social History Type Response Tobacco Current every day sm oker, Cigars, Started age 14 Years. 1 Smoking Status Never smoked cigaret juan pablo Sex Male Sex Representation Male (finding) 1Former Cigarette smoker. Now smokes cigars Pre-OP H & P * ALAINA Mcarthur Cory D: PERFORM, MODIFY Event Display: Pre-OP H & P Authored Date: [id number] PRE-OPERATIVE HISTORY AND PHYSICAL Name: AUBREE GASCA Patient Number: [id number] : 1955 Date of Service: 06/17/2024 PRE-OP Diagnosis: Right hip end-stage DJD Planned Procedure: Right total hip arthroplasty Chief Complaint: Right hip pain and loss of motion History of Present Illness (including history relevant to procedure): This 68-year-old male presents today with his , for his preoperative history and physical. He is scheduled to undergo a righthip total hip arthroplasty with Dr. Martin on 07/06/2024. The patient was previously scheduled for this procedure on 05/27/2024 but had to postpone due to cardiac clearance and requirement of a dobutamine echo. He has now been cleared and is ready to proceed. He has had right hip pain for years. Symptoms have been manageable with ibuprofen and Tylenol. Over the last 7 months his pain has become intolerable. He states he is not walking much due to the pain. He is afraid of falling. He elects to proceed with surgery in hopes of improving his pain and function. Preoperative imaging has beenobtained. He denies any numbness or tingling. Preoperative labs have been ordered. Pain is worse with weightbearing and does affect his ADLs. Review Of Systems: A total of 10 systems were reviewed and are significant only for below stated conditions. Social history: Patient is . Retired. Daily tobacco use of 3/4 pack/day. Frequent EtOH use. History of abuse. 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 Family history: Significant for alcoholism, cardiovascular disease, diabetes, lung cancer, thyroid disease in his mother and an OR in his father. Past Medical History: Problems: Nicotine use Right bundle branch block Preoperative cardiovascular examination Hypertension Osteoarthritis of right hip Alcohol abuse Cigar smoker Sacroiliac joint pain Acute rhinosinusitis Depressed mood Healthcare maintenance Low back pain radiating to right lower extremity Rotator cuff tear History of neck surgery S/P TKR (total knee replacement) Weight disorder Osteoarthritis of knee Prophylactic administration of vaccine against other diseases Neck pain SHOULDER PAIN GERD Decreased vision Procedure History Procedure Procedure Date Comments [facility] bilateral knee arthroscopies bilateral TKAs Hip X-ray 06/14/2020 - 1. No acute fractures.2. Moderate osteoarthritic changes involving the right hip, with marked superior joint space narrowing and femoral head osteophyte formation. Ultrasound of right groin and right scrotum 06/14/2020 - No sonographic abnormality within the right inguinal region. No hernia identified. CXR - Chest X-ray 06/19/2014 - No evidence of acute disease Neck repair 04/2011 - Real disc and screws placed. Allergies and Sensitivities: Definity(sharp back pain) Current Home Meds: (Last Updated 05/24 09:18) aspirin (aspirin 81 mg oral delayed release tablet) 81 mg PO Daily ibuprofen (ibuprofen 600 mg oral tablet) TAKE 1 TABLET BY MOUTH TWO TIMES DAILY WITH FOOD OR MILK NEEDED FOR PAIN AND OR ARTHRITIS multivitamin 1 tab PO Daily Chewable olmesartan (olmesartan 40 mg oral tablet) 40 mg PO Daily pantoprazole (pantoprazole 20 mg oral delayed release tablet) 20 mg PO Daily Vitals: Last Updated 06/17/24 09:56 Weights: Last Updated 06/17/24 09:56 Date Temp Pulse BP RR SpO2 FIO2 Date Wt(kg) Wt(lb) 06/17 09:56 36.5 58 144/82 100 06/17 09:56 74.3 163 06/17 09:56 74.3 163 24 Hr Tmax: 36.5 at 06/17 09:56 Initial Wt: 06/17 74.3 kg 163 lb Physical Exam: (relevant to the procedure, including heart and lung evaluation) General: Well-developed, well-nourished, elderly male, in no acute distress. Sitting in a chair. Alert and oriented. HEENT: Normocephalic, atraumatic. Eyes PERRLA, EOMI. Nares patent bilaterally without nasal drainage. Oropharynx with moist oral mucosa. Neck: No JVD. Cardiac: RRR. No MGR. Peripheral pulses are 2+. Lungs: Clear to auscultation bilaterally. No crackles, rhonchi, or wheezing. Fair air movement. Abdomen: Bowel sounds present x 4. Soft nontender. No organomegaly. No masses. Mildly obese. Extremities: Right hip evaluation reveals no obvious asymmetry or deformity. There is hip flexion to around 100 degrees. External rotation of greater than 30 degrees. Internal rotation of only 5 degrees beyond neutral. This is limited by pain. There is focal discomfort with palpation over the anterior flexion crease. No pain with palpation over the IT band or greater trochanter. No pain over his ischial tuberosity or hamstring tendons. Ambulatory today with a slow antalgic gait. Neuro: Gross sensation is intact across the right leg by soft touch. Skin: Warm dry with good turgor. No rashes. No edema at the hip. Studies of radiographic results (relevant to the procedure): Radiographic imaging previously obtained shows end-stage DJD of the right hip. Periarticular osteophytes, subchondral sclerosis, and jointspace narrowing are all present. ASSESSMENT: Right hip end-stage DJD Plan: Approximately 25 minutes was spent with the patient and his reviewing operative procedure, postoperative recovery, physical therapy requirements, and medication use. Postoperative prescriptions for Percocet 5/325 mg and Eliquis 2.5 mg will be sent to his pharmacy upon discharge from the hospital. He states his son will still be with him for a week or so to help out. His son will stay. The patient would like home health during his homebound stay. He specifically wanted to know when hecould drive. He was informed that likely at [address] He already has a walker at home. He has picked up a raised toilet seat. He was encouraged to quit smoking. The patient states he will use nicotine gum. PDMP was checked and there are no concerning findings. He is currently asymptomatic of any COVID-19 or influenza symptoms. Postop follow-up appointment has been made with me for July 21. This dictation has been completed using [employer] text voice recognition software. Grammatical errors, omissions, insertions, and misspellings may be present due to the limitations of the software. Electronic Signature on File Electronically Reviewed/Signed by: Natanael Mcarthur PA-C Author Signature Dt/Tm:06/17/2024 05:08 PM Division of Sports Medicine Electronically Reviewed/Signed by: MD Laisha Sharifignclarisse Signature Dt/Tm: 06/17/2024 06:00 PM Senior Information Systems Architect for Clinical Affairs, [facility] Ammy Professor in Orthopaedics Cloth Washer Back Tender, [facility] CDS Patient Care team information Care Team Personnel Name: DO Stack Franklin J Position: Physician - Family Med Member Role: Primary Care Provider Address: [address] [place] [id number] [place] [employer]: [phone] Care Team Related Persons Name: NOEMÍ GASCA Insurance Providers Guarantor name: AUBREE ELO [facility] Information #: 1 Payer: [employer] [place] Member Number: [id number] Policy Number: NA Group Number: [id number] Payer Identifier: [id number] Health Plan Information #: 2 Payer: [employer] [place] Member Number: [id number] Policy Number: NA Group Number: NA Payer Identifier: [id number] Health Plan Information #: 3 Payer: MEDICARE Member Number: NA Policy Number: NA Group Number: NA Payer Identifier: [id number]
--- OUTSIDE RECORDS SUMMARY | 2024-07-06 15:34 | External Medical Summary | Continuity of Care Document ---
Author Name Unknown Organization [facility] [address] Address [address], [place] [id number] Care Team Providers Care Drug Worker Name Role Phone Marc Stack Primary Care Physician [phone] [id number] Date(s): 05/24/24 - 05/24/24 [facility] [address], [address] [place] [address] [phone] Encounter Diagnosis Hypertension(Discharge Diagnosis) - 05/24/24 Family history of coronary artery disease(Discharge Diagnosis) - 05/24/24 Preoperative cardiovascular examination(Discharge Diagnosis) - 05/24/24 Right bundle branch block(Discharge Diagnosis) - 05/24/24 Nicotine use(Discharge Diagnosis) - 05/24/24 Discharge Disposition: Home or Self Care Attending Physician: DO Tovar Michelle L Encounter Type: Clinic Allergies, Adverse Reactions, Alerts Substance Criticality Severity Reaction Reaction Severity Status Definity sharp back pain Acti ve Immunizations Given and Recorded Vaccine Date Status Refusal Reason SARS-CoV-2 (COVID-19) mRNA-vacc - [id number] 12/04/23 Recorded SARS-CoV-2 (COVID-19) mRNA-vacc - [id number] 01/14/23 Recorded SARS-CoV-2 mRNA (Pfizer 12+) bivalent [...] Patient to take daily with food, Pharmacy: [id number] Start Date: 05/24/24 Status: Ordered Quantity: 100.0 Unit: tab Repeat number: 1 ibuprofen 600 mg oral tablet Start: 03/24/24 1:30:00 PM EST, See Instructions, Disp# 60 tab, Refills: 2, TAKE 1 TABLET BY MOUTH TWO TIMES DAILY WITH FOOD OR MILK NEEDED FOR PAIN AND OR ARTHRITIS, [id number] Start Date: 03/24/24 Status: Ordered Quantity: 60.0 Unit: tab Repeat number: 1 multivitamin Start: 11/15/18 8:46:00 AM EDT, 1 tab, PO, Daily, Chewable Start Date: 11/15/18 Status: Ordered Repeat number: 1 olmesartan 40 mg oral tablet Start: 02/12/24 9:32:00 AM EST, 1 tab, PO, Daily, Disp# 30 tab, Refills: 6, Pharmacy: [id number] Start Date: 02/12/24 Stop Date: 09/09/24 Status: Ordered Quantity: 30.0 Unit: tab Repeat number: 7 pantoprazole 20 mg oral delayed release tablet Start: 03/10/24 11:45:00 AM EST, 1 tab, PO, Daily, Disp# 90 tab, Refills: 3, Pharmacy: [id number] Start Date: 03/10/24 Stop Date: 07/08/24 Status: Ordered Quantity: 90.0 Unit: tab Repeat number: 4 Indication: Epigastric pain Problem List Condition Confirmation Course Effective Dates [...] Effective Dates Health Status Clinical Service Informant Preoperative cardiovascular examination Discharge Diagnosis 05/24/24 Non-Specified Hypertension Discharge Diagnosis 05/24/24 Non-Specified Nicotine use Discharge Diagnosis 05/24/24 Non-Specified Family history of coronary artery disease Discharge Diagnosis 05/24/24 Non-Specified Right bundle branch block Discharge Diagnosis 05/24/24 Non-Specified Procedures Procedure Date Related Diagnosis Body Site Status Hip X-ray 1 06/14/20 Completed Ultrasound of right groin an d right scrotum 2 06/14/20 Completed CXR - Chest X-ray 3 06/19/14 Compl eted Neck repair 4 04/2011 Completed bilateral knee arthroscopies Completed bilateral TKAs Completed [place] Teeth Extraction C ompleted 11. No acute fractures. 2. Moderate osteoarthritic changes involving the right hip, with marked superior joint space narrowing and femoral head osteophyte formation. 2No sonographic abnormality within the right inguinal region. No hernia identified. 3No evidence of acute disease 4Donner disc and screws placed. Social History Social History Type Response Tobacco Current every day sm oker, Cigars, Started age 14 Years. 1 Smoking Status Current every day li ght smoker Sex Male Sex Representation Male (finding) 1Former Cigarette smoker. Now smokes cigars Patient Care team information Care Team Personnel Name: DO Stack Franklin J Position: Physician - Family Med Member Role: Primary Care Provider Address: [address] [place] [address]: [phone] Care Team Related Persons Name: NOEMÍ GASCA Insurance Providers Guarantor name: AUBREE LANGSTONEGAND [facility] Information #: 1 Payer: [employer] [facility] Member Number: [id number] Policy Number: NA Group Number: [id number] Health Plan Information #: 2 Payer: [employer] Member Number: [id number] Policy Number: NA Group Number: NA Health Plan Information #: 3 Payer: MEDICARE Member Number: NA Policy Number: NA Group Number: NA
[2024-07-06] MEDS: oxyCODONE HCL IR 5 MG TAB (IMMEDIATE RELEASE) PO PRN (16:31)
[2024-07-06] MEDS: ASCORBIC ACID 500 MG TAB PO SCH (18:04)
[2024-07-06] MEDS: FERROUS GLUCONATE 324 MG TAB PO SCH (18:04)
[2024-07-06] MEDS: SENNA 8.6 MG TAB PO SCH (20:21)
[2024-07-06] MEDS: LOSARTAN POTASSIUM 50 MG TAB PO SCH (21:11)
[2024-07-07 06:16] LABS: Basophils # (auto) 0.01 K/uL (0.00-0.20); Basophils % (auto) 0.1 %; Eosinophils # (auto) 0.02 K/uL (0.00-0.50); Eosinophils % (auto) 0.2 %; Hematocrit (blood only) 30.5 % (42.0-52.0); Hemoglobin 10.3 g/dl (14.0-18.0); Immature Granulocytes # (auto) 0.04 K/uL (0.01-0.20); Immature Granulocytes % (auto) 0.5 %; Lymphocytes # (auto) 1.48 K/uL (1.20-3.40); Lymphocytes % (auto) 18.4 %; Mean Corpuscular Hemoglobin 32.7 pg (25.0-34.0); Mean Corpuscular Hgb Conc 33.8 g/dL (32.0-36.0); Mean Corpuscular Volume 96.8 fL (80.0-100.0); Mean Platelet Volume 8.7 fL (9.4-12.4); Monocytes # (auto) 0.93 K/uL (0.11-0.59); Monocytes % (auto) 11.6 %; Neutrophils # (auto) 5.57 K/uL (1.40-6.50); Neutrophils % (auto) 69.2 %; Platelet Count 192 K/uL (130-400); RDW Coefficient of Variation 11.9 % (11.5-14.5); RDW Standard Deviation 42.5 fL (36.4-46.3); Red Blood Count 3.15 M/uL (4.70-6.10); White Blood Count 8.05 K/ul (4.8-10.8)
[2024-07-07 06:44] LABS: BUN Creatinine Ratio 30.2 (10-20); Calcium 8.2 mg/dl (8.6-10.3); Creatinine Clr Calc Pharmacy 74.7 ml/min; Potassium 3.6 mmol/L (3.5-5.1)
--- NOTE | 2024-07-07 07:06 | Orthopedic Progress Note ---
Date of Service July 07, 2024 Assessment & Plan Admission and Anticipated Discharge Date Admission Date: July 06, 2024 Orthopedic Progress Note Postop day 1 status post right total replacement. Patient is insecure about going home today. Was advised that after PT /OT he should feel more comfortable with that and should be able to go home. Encouraged him to develop a positive mindset. Vital signs are stable he is afebrile. Neurovascular check femoral sciatic nerve is normal. Wound dressing clean dry and intact. Calves nontender. A.m. labs reveal hematocrit stable at above 30. Assessment status post total replacement right. Needs to develop positive mindset needs to get more confidence. Encourage PT OT to have him do some steps. Initiate anticoagulation today. Anticipate discharge today after PT OT and initiation of DVT PE prophylaxis.
[2024-07-07 07:18] VITALS: BP 144/70; PULSE 71; RESP 17; TEMP 98.4; O2SAT 96
[2024-07-07] MEDS: APIXABAN 2.5 MG TAB PO SCH (07:47)
[2024-07-07] MEDS: dexAMETHasone 10 MG in SYRINGE 0 ML IV SCH (09:06)
--- NOTE | 2024-07-07 09:21 | Orthopedic Progress Note ---
Date of Service July 07, 2024 Assessment & Plan (1) Status post right hip replacement: Plan: The patient's surgical dressings were changed today by me. These will remain in place through the weekend. They can be changed on Thursday if needed for soiling. Written discharge instructions were provided Start his Eliquis this morning. Prescriptions for Eliquis and Percocet were sent to his pharmacy Continue ambulating with a walker Total hip precautions were reviewed with the patient Continue using the wedge pillow between the legs when sleeping for the next 4 weeks Follow-up in the office in 2 weeks with me as scheduled for staple removal. Admission and Anticipated Discharge Date Admission Date: July 06, 2024 Subjective This 68-year-old male is seen today in his room. He is 1 day status post right total hip arthroplasty. He states he did fairly well overnight. He had several interruptions and his heels were sore from laying on his back. He denies any chest pain, shortness of breath, nausea, vomiting, or abdominal pain. He feels slightly lightheaded now due to recently taking Percocet. No additional complaints. He feels ready for discharge to home. He states he has been out of bed and ambulated around the room as well as to the bathroom. He is passing gas. No bowel movement yet. Review of Systems Review of Systems: Unchanged from yesterday. Physical Exam 2 Physical Exam: General: Well-developed, well-nourished, elderly male, in no acute distress. Currently laying in bed. He states he was up earlier and ambulated to the bathroom. Alert and oriented. Skin: Warm and dry with good turgor. No rashes. His postsurgical dressing is in place on the right hip. Upon removal, he has scant dried blood on the inner dressing. There is no active bleeding. [place] are in place. Wound edges are well-approximated. No erythema. Musculoskeletal: The patient is able to set his quad and perform a straight leg raise. He has intact motor function to the thigh and knee for flexion and extension. Intact motor function of the toes. Neurologic: Gross sensation is intact across the right leg by soft touch. Peripheral pulses are 2+. Results & Data Vital Signs (Past 12 Hours) Vital Signs Temp Pulse Resp BP Pulse Ox O2 Del Method 07/07/24 07:18 36.9 C 71 17 144/70 H 96 Room Air 07/07/24 03:29 36.8 C 73 14 138/78 94 Room Air 07/06/24 23:25 36.6 C 73 14 138/79 95 Room Air Laboratory Results CBC obtained this morning shows a normal white count of 8.05. H&H of 10.3 and 30.5. Platelets were 192,000. PRP shows normal electrolytes. BUN of 26 with creatinine 0.86. Glucose this morning 115.
== END 2024-07-07 11:40 | disposition home health service (06) | DRG 470 ==
LOC: 3E 05:26 → ASU 05:26 → OBSVTOIN 08:41 → INTOOBSV 08:41